=== PATIENT | female | born 2000 | race African-American/Black ===

== ENCOUNTER 2022-04-04 20:51 | Emergency (ER) | payer MEDICAID, SELFPAY ==
[2022-04-04] MEDS ORDERED: Albuterol Sulfate 2.5 mg/0.5 ml Neb ONE (21:26)
== END 2022-04-04 21:46 | disposition home or self-care (01) ==
LOC: MADERS 20:51
DX: O98.511 Other viral diseases complicating pregnancy, first trimester (principal); U07.1 COVID-19; Z3A.09 9 weeks gestation of pregnancy
CPT/HCPCS: J7611

== ENCOUNTER 2022-10-30 15:34 | Emergency (ER) | payer MEDICAID, OTHER ==
[~2022-10-30 15:34] MED LIST: Iopamidol 370 76% 100 ML VIAL ONE
[2022-10-30] MEDS ORDERED: Lorazepam 2 MG/ML VIAL ONE (16:11)
[2022-10-30] MEDS ORDERED: Ketorolac Tromethamine 30 MG/ML VIAL ONE (16:12)
[2022-10-30 16:15] LABS: #Basophils 0.1 thou/uL (0.0-0.2); #Eosinphils 0.3 thou/uL (0.0-0.7); #Lymphocytes 2.9 thou/uL (1.20-3.40); #Monocytes 0.7 thou/uL (0.11-0.59); #Neutrophils 5.4 thou/uL (1.40-6.50); %Basophils 0.8 % (0.0-1.0); %Eosinophils 3.5 % (0.0-10.0); %Lymphocytes 30.8 % (21.0-51.0); %Monocytes 7.3 % (0.0-10.0); %Neutrophils 57.6 % (42.0-75.0); Hemoglobin 11.5 g/dL (12.0-16.0); Mean Corpuscular Hemoglobin 27.7 pg (27.0-31.0); Mean Corpuscular Volume 83.9 fl (78.0-98.0); Mean Platelet Volume 6.4 fL (7.4-10.4); Platelet Count 368 10x3/uL (130-400); RBC Distribution Width 11.6 % (11.5-14.5); Red Blood Cell (RBC) Count 4.15 mill/uL (4.20-5.40); White Blood Cell (WBC) Count 9.3 10x3/uL (4.8-10.8)
[2022-10-30 16:35] LABS: ALT (SGPT) 25 U/L (8-55); AST (SGOT) 46 U/L (5-34); Albumin 3.9 g/dL (3.5-5.0); Alkaline Phosphatase 102 U/L (40-110); Anion Gap 13 mmol/L (10-20); BUN (Urea Nitrogen) 13 mg/dL (7.0-18.7); Bilirubin, Total 0.4 mg/dL (0.2-1.2); Calc. Creatinine Clearance 0 mL/min (70-130); Calcium 9.2 mg/dL (7.8-10.44); Carbon Dioxide 24 mmol/L (22-29); Chloride 103 mmol/L (98-107); Estimated GFR 115; Globulin 3.3 g/dL (2.4-3.5); Glucose 88 mg/dL (70-105); Lipase 28 U/L (8-78); Potassium 3.8 mmol/L (3.5-5.1); Protein, Total 7.2 g/dL (6.0-8.3); Sodium 136 mmol/L (136-145)
[2022-10-30] MEDS ORDERED: Morphine 4 MG/ML VIAL ONE (18:31)
[2022-10-30 18:41] LABS: Bilirubin Negative (Negative); Blood, Urine Negative (Negative); Clarity Clear (Clear); Glucose, Urine (Dipstick) Negative (Negative); Ketone, Urine Negative (Negative); Leukocyte Negative (Negative); Nitrite Negative (Negative); Protein, Urine (Dipstick) Negative (Neg-Trace); Urobilinogen 0.2 mg/dL (Less than 2)
[2022-10-30] MEDS ORDERED: Amoxicillin/Potassium Clav 875 MG TAB ONE (19:44)
== END 2022-10-30 20:00 | disposition home or self-care (01) ==
LOC: MADERS 15:34
DX: K80.20 Calculus of gallbladder without cholecystitis without obstruction (principal); I88.0 Nonspecific mesenteric lymphadenitis
CPT/HCPCS: 74018; 74177; 80053; 81003; 83690; 85025; 96374; 96375; J1885; J2060; J2270; Q9967